=== PATIENT | male | born 1935 | race Caucasian/White ===

== ENCOUNTER 2017-09-13 18:01 | Observation (INO) ==
[2017-09-13] MEDS ORDERED: *HR* FentaNYL (PF) 100 MCG/2 ML VIAL IVP ONE ×2 (18:35→19:02)
[2017-09-13] MEDS ORDERED: *HR* FentaNYL (PF) 100 MCG/2 ML VIAL ONE ×2 (18:35→19:01)
--- NOTE | 2017-09-13 18:35 | Emergency Department Note ---
Disposition Clinical Impression: Hematuria Qualifiers: Hematuria type: unspecified type Qualified Code(s): R31.9 - Hematuria, unspecified Disposition: Still a Patient Condition: Good Forms: ED Satisfaction Letter General Adult HPI - General Chief complaint: ED Urogenital-Male Stated complaint: Bleeding from penis Time Seen by Provider: 09/13/17 18:27 Source: patient Limitations: no limitations Nursing Notes Reviewed: Yes Vital Signs Reviewed: Yes - History of Present Illness HPI Narrative: Patient presents for evaluation of hematuria. Patient has history of prostate problems. Hematuria in the past. Follows with Dr. Echeverria. Had a TURP procedure performed 10 years ago in [place]. Patient has not had any recent issues. Last night had a episode of hematuria where he passed a clot. Patient said continuous bleeding since this time and has had inability to urinate. Lower abdominal pain without guarding or rebound. No fevers or chills. No CVA tenderness. Pain Scale: 10 - Related Data Allergies Allergy/AdvReac Type Severity Reaction Status Date / Time Penicillins Allergy Anaphylaxis Verified 03/21/16 20:11 Review of Systems: CONSTITUTIONAL: No weight loss, fever, chills, weakness or fatigue. HEENT: Eyes: No visual changes. Ears, Nose, Throat: No hearing loss, difficulty talking or unable to swallow. SKIN: No rash or itching. CARDIOVASCULAR: No chest pain, chest pressure or chest discomfort. No palpitations or edema. RESPIRATORY: No shortness of breath, cough or sputum. GASTROINTESTINAL: Abdominal pain; No anorexia, nausea, vomiting or diarrhea. GENITOURINARY: Hematuria. Decreased ability to urinate NEUROLOGICAL: No headache, dizziness, syncope, paralysis, ataxia, numbness or tingling in the extremities. No change in bowel or bladder control. MUSCULOSKELETAL: No muscle pain, back pain, joint pain or stiffness. Past Medical History - Past Medical History Medical history: Reports: diabetes, hypertension, other Psychiatric history: Reports: no psych history - Social History Smoking Status: Never smoker Smokeless Tobacco Status: No Alcohol use: Reports: none Drug use: Reports: none Physical Exam General appearance: NAD, conversant Eyes: anicteric sclerae, moist conjunctivae; no lid-lag; PERRL HENT: Atraumatic; oropharynx clear with moist mucous membranes Neck: Normal appearance; Trachea midline Chest: Symmetrical chest rise; No respiratory distress Abdomen: Soft mild tenderness to suprapubic palpation without rebound or guarding. No CVA tenderness. : Gross hematuria. No tenderness to the testicle or penis. Extremities: No peripheral edema or extremity tenderness Skin: Normal temperature, turgor and texture; no rash, ulcers or subcutaneous nodules Psych: Appropriate mood and affect Neuro: Awake and alert - General Limitations: no limitations General appearance: alert Course - Reevaluation(s) Reevaluation #1: Patient signed out to the night physician. Labs pending. CBI ordered. Vital Signs Temperature 97.6 F 09/13/17 18:16 Pulse Rate 110 09/13/17 18:16 Respiratory Rate 18 09/13/17 18:16 Blood Pressure 222/121 09/13/17 18:16 O2 Sat by Pulse Oximetry 98 09/13/17 18:16 Temperature 97.6 F 09/13/17 18:16 Pulse Rate 91 09/13/17 18:40 Respiratory Rate 16 09/13/17 18:40 Blood Pressure 180/76 09/13/17 18:40 O2 Sat by Pulse Oximetry 96 09/13/17 18:40 Oxygen Delivery Oxygen Delivery Room Air Medical Decision Making - Lab Data Result diagrams: 09/13/17 18:48 Lab Results 09/13/17 Range/Units 18:48 WBC 11.6 H (4.3-11.1) K/mcL RBC 4.79 (4.19-5.50) M/mcL Hgb 14.0 (12.9-16.9) g/dL Hct 42.0 (37.5-50.1) % MCV 87.7 (83.0-100.0) fL MCH 29.2 (28.0-33.3) pg MCHC 33.3 (31.6-35.5) g/dL RDW 13.4 (11.5-14.5) % Plt Count 151 (140-400) K/mcL MPV 11.9 (9.4-12.4) fL Immature Gran % 0.4 (0-4) % Seg Neutrophils % 67.0 % Lymphocytes % 23.5 % Monocytes % 8.1 % Eosinophils % 0.7 % Basophils % 0.3 % Neutrophils # 7.8 (1.6-8.9) K/mcL Lymphocytes # 2.7 (0.6-4.6) K/mcL Monocytes # 0.9 (0.0-1.3) K/mcL Eosinophils # 0.1 (0.0-0.6) K/mcL Basophils # 0.0 (0.0-0.2) K/mcL Attestation Statement - Attestation Attestation: I examined this patient and my medical decision-making was reviewed with the Resident Physician. I agree with the documented findings, disposition and treatment plan as described except to the extent set forth below. Patient to ED with penile bleeding. Started with blood in his urine last night and has progressed. Suprapubic tenderness on exam. Plan. Continuous bladder irrigation. Labs pending. Will be signed out to warehouse supervisor 3rd shift.
[2017-09-13 18:57] LABS: Basophils % 0.3 %; Eosinophils # 0.1 K/mcL (0.0-0.6); Eosinophils % 0.7 %; Immature Granulocytes % 0.4 % (0-4); Lymphocytes # 2.7 K/mcL (0.6-4.6); Lymphocytes % 23.5 %; Mean Corpuscular HGB Conc 33.3 g/dL (31.6-35.5); Mean Corpuscular Hemoglobin 29.2 pg (28.0-33.3); Mean Corpuscular Volume 87.7 fL (83.0-100.0); Mean Platelet Volume 11.9 fL (9.4-12.4); Monocytes # 0.9 K/mcL (0.0-1.3); Monocytes % 8.1 %; Neutrophils # 7.8 K/mcL (1.6-8.9); Platelet Count 151 K/mcL (140-400); Red Blood Count 4.79 M/mcL (4.19-5.50); Red Cell Distribution Width 13.4 % (11.5-14.5)
[2017-09-13 19:05] LABS: INR 1.1; Prothrombin Time 11.8 Seconds (9.4-12.1)
[2017-09-13 19:18] LABS: Calcium 11.8 mg/dL (8.6-10.3); Potassium 4.5 mEq/L (3.5-5.1)
[2017-09-13 19:43] LABS: Bilirubin,Urine Negative (Negative); Blood,Urine Large (Negative); Glucose,Urine (UA) Normal (Normal); Ketones,Urine Negative (Negative); Leukocyte Esterase,Urine Negative (Negative); Nitrite,Urine Negative (Negative); PH,Urine 6.5 pH Units (5.0-8.0); Protein,Urine 100 mg/dL (Neg-Trace); Specific Gravity,Urine 1.014 (1.010-1.025); Urobilinogen,Urine Normal (Normal)
[2017-09-13 19:47] LABS: Clarity,Urine Cloudy (Clear); Color,Urine Red (Yellow)
--- NOTE | 2017-09-13 20:12 | Emergency Department Note ---
Disposition Clinical Impression: Urinary retention Hematuria Qualifiers: Hematuria type: unspecified type Qualified Code(s): R31.9 - Hematuria, unspecified Chronic kidney disease Qualifiers: Chronic kidney disease stage: unspecified stage Qualified Code(s): N18.9 - Chronic kidney disease, unspecified Disposition: Admitted As Inpatient Condition: Fair Time of Disposition: 21:27 General Adult HPI - General Chief complaint: ED Urogenital-Male Stated complaint: Bleeding from penis Time Seen by Provider: 09/13/17 18:27 Source: patient Limitations: no limitations - History of Present Illness HPI Narrative: Patient was signed out by the primary provider. Please see their documentation for complete history and physical. Pain Scale: 1 - Related Data Home Medications Medication Instructions Recorded Confirmed Aspirin Enteric Coated [Aspirin EC] 81 mg PO DAILY 09/13/17 09/13/17 Calcitriol [Rocaltrol] 0.25 mcg PO DAILY 09/13/17 09/13/17 Cholecalciferol (D-3) [Vitamin D] 2,000 unit PO DAILY 09/13/17 09/13/17 Ciprofloxacin HCl [Cipro] 500 mg PO BID 09/13/17 09/13/17 Furosemide [Lasix] 20 mg PO BID 09/13/17 09/13/17 Insulin Glargine [Lantus] 35 unit SQ HS 09/13/17 09/13/17 Insulin LISPRO [HumaLOG] 12 unit SQ TIDAC 09/13/17 09/13/17 Lisinopril [Zestril] 10 mg PO DAILY 09/13/17 09/13/17 Rosuvastatin [Crestor] 20 mg PO HS 09/13/17 09/13/17 SitaGLIPtin [Januvia] 100 mg PO DAILY 09/13/17 09/13/17 Tamsulosin [Flomax] 0.4 mg PO DAILY 09/13/17 09/13/17 Verapamil HCl [Verapamil ER] 180 mg PO DAILY 09/13/17 09/13/17 amLODIPine [Norvasc] 5 mg PO DAILY 09/13/17 09/13/17 Allergies Allergy/AdvReac Type Severity Reaction Status Date / Time Penicillins Allergy Anaphylaxis Verified 03/21/16 20:11 Past Medical History - Past Medical History Medical history: Reports: diabetes, hypertension, other Psychiatric history: Reports: no psych history - Social History Smoking Status: Never smoker Smokeless Tobacco Status: No Alcohol use: Reports: none Drug use: Reports: none Physical Exam - General Limitations: no limitations General appearance: alert Course Course Narrative: 82-year-old male with a history of prostate status post TURP over 10 years ago presents for evaluation of gross hematuria passing clots. Patient was complaining of suprapubic pain and spasm. Urinary catheter placed which revealed gross blood as well as clots. Patient has continues bladder irrigation with clear urine. - Reevaluation(s) Reevaluation #1: Patients resting comfortably. Patient does have continuous bladder irrigation was clear urine at this point. Patient was irrigated initially with 1200 mL with 3 L returned. Patient does have gross hematuria which is clearing with continuous bladder irrigation. We will discuss case with urology. Time: 20:13 - Consultations Consultation #1: Spoke with urology, Dr. Echeverria who will see the patient has an inpatient for morning. Recommends that if the urine is clear they can discontinue the CBI. Time: 20:23 Vital Signs Temperature 97.6 F 09/13/17 18:16 Pulse Rate 110 09/13/17 18:16 Respiratory Rate 18 09/13/17 18:16 Blood Pressure 222/121 09/13/17 18:16 O2 Sat by Pulse Oximetry 98 09/13/17 18:16 Temperature 97.6 F 09/13/17 18:16 Pulse Rate 79 09/13/17 20:30 Respiratory Rate 16 09/13/17 21:49 Blood Pressure 143/75 09/13/17 21:49 O2 Sat by Pulse Oximetry 95 09/13/17 20:30 Oxygen Delivery Oxygen Delivery Room Air Medical Decision Making - [facility] Narrative Medical decision making narrative: Patient presents with gross hematuria passing clots. Patient did have urinary retention with spasming. Patient had a Vizcarra catheter placed with continuous bladder irrigation. Patient is requiring escalating doses of fentanyl prior to arrival with the prior divider. The decision was made to admit at that time. Patient case was discussed with the on-call urologist will see the patient the morning. Patient's hemoglobin did drop from prior lab values. Patient's not any blood thinners besides aspirin. Patient's resting comfortably. Patient will be admitted to hospital service. - Lab Data Lab results reviewed: Yes I reviewed the patient's lab results. Result diagrams: 09/13/17 18:48 09/13/17 18:48 Lab Results 09/13/17 09/13/17 09/13/17 Range/Units 18:48 18:48 18:48 WBC 11.6 H (4.3-11.1) K/mcL RBC 4.79 (4.19-5.50) M/mcL Hgb 14.0 (12.9-16.9) g/dL Hct 42.0 (37.5-50.1) % MCV 87.7 (83.0-100.0) fL MCH 29.2 (28.0-33.3) pg MCHC 33.3 (31.6-35.5) g/dL RDW 13.4 (11.5-14.5) % Plt Count 151 (140-400) K/mcL MPV 11.9 (9.4-12.4) fL Immature Gran % 0.4 (0-4) % Seg Neutrophils % 67.0 % Lymphocytes % 23.5 % Monocytes % 8.1 % Eosinophils % 0.7 % Basophils % 0.3 % Neutrophils # 7.8 (1.6-8.9) K/mcL Lymphocytes # 2.7 (0.6-4.6) K/mcL Monocytes # 0.9 (0.0-1.3) K/mcL Eosinophils # 0.1 (0.0-0.6) K/mcL Basophils # 0.0 (0.0-0.2) K/mcL PT 11.8 (9.4-12.1) Seconds INR 1.1 Sodium 137 (136-145) mEq/L Potassium 4.5 (3.5-5.1) mEq/L Chloride 108 H (98-107) mEq/L Carbon Dioxide 22 L (23-29) mEq/L BUN 42 H (8-23) mg/dL Creatinine 2.04 H (0.70-1.30) mg/dL Est GFR ( Amer) 38 L (> 60) Est GFR (Non-Af Amer) 31 L (> 60) BUN/Creatinine Ratio 21 (6-26) Glucose 128 H (70-105) mg/dL Calculated Osmolality 296 (280-300) Calcium 11.8 H (8.6-10.3) mg/dL Ur Specimen Adequacy Urine Color (Yellow) Urine Clarity (Clear) Urine pH (5.0-8.0) pH Units Ur Specific [place] (1.010-1.025) Urine Protein (Neg-Trace) mg/dL Urine Glucose (UA) (Normal) mg/dL Urine Ketones (Negative) mg/dL Urine Blood (Negative) Urine Nitrite (Negative) Urine Bilirubin (Negative) Urine Urobilinogen (Normal) mg/dL Ur Leukocyte Esterase (Negative) Ur Culture Indicated? (NO) Blood Type Antibody Screen 09/13/17 09/13/17 Range/Units 18:48 19:23 WBC (4.3-11.1) K/mcL RBC (4.19-5.50) M/mcL Hgb (12.9-16.9) g/dL Hct (37.5-50.1) % MCV (83.0-100.0) fL MCH (28.0-33.3) pg MCHC (31.6-35.5) g/dL RDW (11.5-14.5) % Plt Count (140-400) K/mcL MPV (9.4-12.4) fL Immature Gran % (0-4) % Seg Neutrophils % % Lymphocytes % % Monocytes % % Eosinophils % % Basophils % % Neutrophils # (1.6-8.9) K/mcL Lymphocytes # (0.6-4.6) K/mcL Monocytes # (0.0-1.3) K/mcL Eosinophils # (0.0-0.6) K/mcL Basophils # (0.0-0.2) K/mcL PT (9.4-12.1) Seconds INR Sodium (136-145) mEq/L Potassium (3.5-5.1) mEq/L Chloride (98-107) mEq/L Carbon Dioxide (23-29) mEq/L BUN (8-23) mg/dL Creatinine (0.70-1.30) mg/dL Est GFR ( Amer) (> 60) Est GFR (Non-Af Amer) (> 60) BUN/Creatinine Ratio (6-26) Glucose (70-105) mg/dL Calculated Osmolality (280-300) Calcium (8.6-10.3) mg/dL Ur Specimen Adequacy See below A Urine Color Red A (Yellow) Urine Clarity Cloudy A (Clear) Urine pH 6.5 (5.0-8.0) pH Units Ur Specific [place] 1.014 (1.010-1.025) Urine Protein 100 H (Neg-Trace) mg/dL Urine Glucose (UA) Normal (Normal) mg/dL Urine Ketones Negative (Negative) mg/dL Urine Blood Large H (Negative) Urine Nitrite Negative (Negative) Urine Bilirubin Negative (Negative) Urine Urobilinogen Normal (Normal) mg/dL Ur Leukocyte Esterase Negative (Negative) Ur Culture Indicated? NO (NO) Blood Type O POSITIVE Antibody Screen NEGATIVE S.B.A.R. - S.B.AMalu Situation: Demographics Background: Presenting Complaint Assessment: Vital Signs, Course and respsone to treatment, Patient/Family Expectation Recommendation: Barrier(s) to disposition, Recommendation based on pending studies, treatments, or consults S.B.A.RCristal Report Given to: Dr. Hu Barbosa Repor Time: 21:26 Attestation Statement - Attestation Attestation: I, Ross Arcos DO, examined this patient [id number] and my medical decision-making was reviewed with Dr. Tulio Aly, Resident Physician. I agree with the documented findings, disposition and treatment plan as described except to the extent set forth below. Please see my progress notes for details. 82-year-old male presents to the emergency room for evaluation of gross hematuria and urinary retention. 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 Vital signs remained stable. Patient has lower abdominal discomfort and pain. Large gauge irrigating Vizcarra catheter was placed. Large costovertebral 200 mL of gross blood and clots. Patient's vital signs were stable. Significant amount of pain medication secondary to bladder spasm and discomfort. Patient also has some secondary renal insufficiency that appears to be new. Hemoglobin is otherwise stable. Pain control is the main issue.. Because of these symptoms and issues patient will be admitted for symptomatic control and observation. Urology was consulted but no intervention required at this time. Patient is otherwise stable hemodynamically and for catheter is functioning appropriately. Disposition will be admission of this time. See detailed of physical exam, medical intervention, medical decision-making and the resident physician' s note. No critical care is required this patient's treatment course. Admission process was determined that the daytime physician prior to arrival following through with the recommended treatment course of this time. 1999 Patient was contacted urology. No other recommendations at this time. Admission process completed for monitoring of the Vizcarra catheter and symptom control. Patient is otherwise stable. Conversation was had with the patient and family. No other concerns or issues noted this time. Patient stable to time of admission to the floor.
--- NOTE | 2017-09-13 22:11 | Internal Med History&Physical ---
<Matthieu Oneil - Last Filed: 09/13/17 23:00> Date of Encounter: 09/13/17 Time of Encounter: 22:10 Assessment and Plan (1) Hematuria Current visit: Yes Status: Acute Patient passed BRB and clots. Hgb 14. Hx of similar presentation in 2013 at outside facility requiring repeat TURP. Likely secondary to Prostate issues, passing of clot. patient now with catheter in and receiving CBI continue CBI and amaya until urine clears continue to monitor Urology on board. Appreciate any recommendations. patient no imaging in our records. while hematuria likely from prior prostate issues. will get CT non contrast abd pelvis to rule out other causes. Qualifiers: Hematuria type: gross Qualified Code(s): R31.0 - Gross hematuria (2) Urinary retention Current visit: Yes Status: Acute Patient with urinary retention prior to passing clot. patient now with catheter in and receiving CBI continue CBI and amaya continue to monitor Urology on board. Appreciate any recommendations. continue IV fluid hydration to avoid excessive post obstruction diuresis. (3) Chronic kidney disease Current visit: Yes Status: Acute Pt with Stage 3 CKD 2/2 to DM Baseline Cr.1.8 Current Cr. 2.04 does not meet criteria for DANISH continue to monitor Qualifiers: Chronic kidney disease stage: stage 3 (moderate) Qualified Code(s): N18.3 - Chronic kidney disease, stage 3 (moderate) (4) Diabetes mellitus Current visit: Yes Status: Acute Pt with Hx of DM on insulin and oral agents. 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 Qualifiers: Hypertension type: essential hypertension Qualified Code(s): I10 - Essential (primary) hypertension Internal Medicine - H&P: HPI Chief complaint: Peeing blood Admitted From: Emergency Dept Plans for Post Hospital Care: Home History of present illness: Mr. Dia is a 82 year old male c PMHx BPH s/p TURP 1999 and repeat ~2012, DM, HTN, CKD reports to ED c/o Hematuria x 1 day. Patient reports having difficulty voiding all day yesterday, then that evening passed a clot and voided "pure blood". Patient has had hx of similar occurance in 2012 requiring clot evacuation and repeat TURP. Patient reports some suprapubic pain earleir but none now. Patient reports it does burn while he's peeing. Patient denies trauma , other complaints. Patient follow with [facility] Dr. Echeverria. Urology consulted and will see patient in the morning. Patient received Complete Bowel Irrigation in the ED. Patient is on his 4th bag now. Hgb is stable. Patient also found to have a bump in Cr. Baseline 1.8 currently 2.04. Pt is on aspirin but no blood thinners. Past Med Surg Social Fam HX - Past Medical History Medical history: diabetes, hypertension, other Psychiatric history: no psych history - Social History Smoking Status: Never smoker Smokeless Tobacco Status: No Alcohol use: none Drug use: none Internal Medicine - H&P: Meds Aspirin Enteric Coated [Aspirin EC] 81 mg PO DAILY 09/13/17 [History] Calcitriol [Rocaltrol] 0.25 mcg PO DAILY 09/13/17 [History] Cholecalciferol (D-3) [Vitamin D] 2,000 unit PO DAILY 09/13/17 [History] Ciprofloxacin HCl [Cipro] 500 mg PO BID 09/13/17 [History] Furosemide [Lasix] 20 mg PO BID 09/13/17 [History] Insulin Glargine [Lantus] 35 unit SQ HS 09/13/17 [History] Insulin LISPRO [HumaLOG] 12 unit SQ TIDAC 09/13/17 [History] Lisinopril [Zestril] 10 mg PO DAILY 09/13/17 [History] Rosuvastatin [Crestor] 20 mg PO HS 09/13/17 [History] SitaGLIPtin [Januvia] 100 mg PO DAILY 09/13/17 [History] Tamsulosin [Flomax] 0.4 mg PO DAILY 09/13/17 [History] Verapamil HCl [Verapamil ER] 180 mg PO DAILY 09/13/17 [History] amLODIPine [Norvasc] 5 mg PO DAILY 09/13/17 [History] 3 Allergy/AdvReac Type Severity Reaction Status Date / Time Penicillins Allergy Anaphylaxis Verified 03/21/16 20:11 All Systems PM: A 10-system review of systems was performed and is negative for pertinent findings except as documented above in the HPI. - Constitutional Constitutional: no chills, no fever(s), no weakness - EENT Eyes: no change in vision Ears: no ear pain Nose, mouth and throat: no hoarseness, no nasal discharge - Cardiovascular Cardiovascular ROS IM: no chest pain, no lightheadedness, no palpitations - Respiratory Respiratory: no cough, no dyspnea - Gastrointestinal Gastrointestinal: no abdominal pain, no diarrhea, no nausea, no vomiting - Genitourinary Genitourinary ROS male: difficulty urinating, dysuria, hematuria - Musculoskeletal Musculoskeletal ROS IM: no muscle weakness, no numbness - Integumentary Integumentary IM: no rash, no jaundice - Neurological Neurological ROS: no abnormal speech, no confusion - Psychiatric Psychiatric: no anxiety, no depression - Constitutional Vitals: Temp Pulse Resp BP Pulse Ox 97.6 F 79 16 143/75 95 09/13/17 18:16 09/13/17 20:30 09/13/17 21:49 09/13/17 21:49 09/13/17 20:30 General appearance: Present: A&O X 3, pleasant, no acute distress, obese, answers questions appropriately - Head Head exam: Present: atraumatic, normocephalic - Eye Eye exam: Present: PERRL, conjuntiva pink, sclera anicteric Pupils: Present: PERRL - Neck Neck exam general surgery: Present: supple, trachea midline. Absent: lymphadenopathy - Respiratory Respiratory exam: Present: CTAB. Absent: accessory muscle use, rales, rhonchi, wheezes - Cardiovascular Cardiovascular exam: Present: RRR, +S1, +S2. Absent: diastolic murmur, gallop, rubs, systolic murmur - GI/Abdominal GI/Abdominal exam: Present: normal bowel sounds, soft, no peritoneal signs. Absent: distended, tenderness - Extremities Exam Extremities exam: Present: warm, radial pulses palpable and symmetrical. Absent : calf tenderness, cyanotic, pedal edema - Neurological Exam Neurological exam: Present: alert, CN II-XII intact, oriented X3, no focal deficits. Absent: facial droop, speech deficit - Skin Skin exam: Present: dry, intact Internal Med - H&P Results - Labs CBC & Chem 7: 09/13/17 18:48 09/13/17 18:48 <Link Lui - Last Filed: 09/14/17 01:18> Date of Encounter: 09/14/17 Time of Encounter: 00:25 Past Med Surg Social Fam HX - Past Medical History Attestation: Yes The following information was validated with the patient. Source: patient, old records reviewed - Past Surgical History Surgical History: prostatectomy - Social History Current living situation: Home, With Family Activity Level: Independent ambulation Recent Out of Country Travel Within the Last 8 Weeks: No - Family History Mother Living Status: Hx Family Genitourinary Disorders: No Father Living Status: Hx Family Genitourinary Disorders: No - Constitutional Constitutional: no chills, no fever(s), no night sweats - Gastrointestinal Gastrointestinal: no nausea, no vomiting - Genitourinary Genitourinary ROS male: difficulty urinating, dysuria, hematuria, no flank pain - Constitutional Vitals: Temp Pulse Resp BP Pulse Ox 97.5 F L 81 16 158/76 97 09/13/17 22:16 09/13/17 22:16 09/13/17 22:16 09/13/17 22:16 09/13/17 22:16 General appearance: Present: A&O X 3, no acute distress - Eye Eye exam: Present: PERRL. Absent: scleral icterus - Neck Neck exam general surgery: Present: supple - Respiratory Respiratory exam: Present: CTAB. Absent: rales, rhonchi, wheezes - Cardiovascular Cardiovascular exam: Present: RRR, +S1, +S2. Absent: diastolic murmur, systolic murmur - GI/Abdominal GI/Abdominal exam: Present: normal bowel sounds, soft. Absent: hepatomegaly, splenomegaly, tenderness - Extremities Exam Extremities exam: Present: warm, radial pulses palpable and symmetrical. Absent : pedal edema, tenderness - Back Exam Back exam: Absent: CVA tenderness (L), CVA tenderness (R) - Skin Skin exam: Present: dry, warm. Absent: rash Internal Med - H&P Results - Labs CBC & Chem 7: 09/13/17 18:48 09/13/17 18:48 - Impressions ITS Impressions Abdomen/Pelvis CT 09/14/17 00:20 IMPRESSION: 1. There is right-sided hydronephrosis and bilateral hydroureter with no ureteral or bladder calculi. There is a tiny calculus within the left kidney. 2. High attenuation in the urinary bladder likely represents hemorrhage. 3. Diverticulosis without scan evidence for diverticulitis. 4. Cholelithiasis without scan evidence for acute cholecystitis. D/ / Shen Andrew MD / Shen Andrew MD Interpreting Provider: Shen Andrew MD - Attending Attestation I discussed the patient QUILEUTE, PMH, ROS, lab data, and exam findings with Dr. Oneil. I then saw and examined patient independently as well. Patient has continuous bladder irrigation infusing currently, and he has blood tinged urine in his Amaya presently. He feels much better now and after he passed a clot in his urine. He denies fevers, chills, flank pain, or history of kidney stones. He has history of prostate problems. He has not had any recent GI/ imaging. As such, I requested from Dr. Oneil to order a non-contrast CT to image his GI and tract. Further urologic intervention per urology. We will continue IVF and monitor his renal function. He sees a white shoe examiner at [facility] in [place], [place]. If necessary, we will consult our nephrologists. However, if renal function remains stable, outpatient follow up is appropriate. Other than my above comments and noted exam findings, I agree with Dr. Oneil 's assessment and plan.
[2017-09-13] MEDS ORDERED: Dextrose Gel 15 GM/37.5 ML TUBE PO PRN ×2 (23:04)
[2017-09-13] MEDS ORDERED: *HR* Dextrose 50 % in Water (Syg) 50 ML SYRINGE IVP PRN (23:04)
[2017-09-13] MEDS ORDERED: D5% in Water 1,000 ML IVC PRN (23:04)
[2017-09-14] MEDS: Insulin LISPRO 300 UNITS/3 ML VIAL SQ SCH ×5 (00:55→20:53)
--- NOTE | 2017-09-14 07:01 | Urology - Consult Note ---
Date of Encounter: 09/14/17 Time of Encounter: 06:59 - Assessment and Plan (1) Gross hematuria Current Visit: Yes Status: Acute Assessment and plan: Continue CBI (2) Clot retention of urine Current Visit: Yes Status: Acute Assessment and plan: I reviewed the CT scan. I suspect that the gross hematuria secondary to BPH. Will start finasteride. Continue CBI. Hopefully hematuria will begin to decrease as I was able to irrigate some clot out this morning. I reviewed the CT scan and there does not appear to be a significant volume of clot in his bladder. Hopefully he will not require surgical intervention. Hold all anticoagulation. Urology CN:HPI Consult date: 09/14/17 Reason for consult Urology: Gross Hematuria History of present illness: Patient with a 1-2 day history of gross hematuria. Last seen by urology in 2013. Distant history of a TURP for BPH. Patient developed clot retention and Vizcarra catheter was placed in the emergency room. CT scan demonstrates significant BPH with some clots in the bladder. Past Med Surg Social Fam HX - Past Medical History Medical history: diabetes, hypertension, other Psychiatric history: no psych history - Past Surgical History Surgical History: prostatectomy - Social History Smoking Status: Never smoker Smokeless Tobacco Status: No Alcohol use: none Drug use: none - Family History Mother Living Status: Hx Family Genitourinary Disorders: No Father Living Status: Hx Family Genitourinary Disorders: No Medications and Allergies Aspirin Enteric Coated [Aspirin EC] 81 mg PO DAILY 09/13/17 [History] Calcitriol [Rocaltrol] 0.25 mcg PO DAILY 09/13/17 [History] Cholecalciferol (D-3) [Vitamin D] 2,000 unit PO DAILY 09/13/17 [History] Ciprofloxacin HCl [Cipro] 500 mg PO BID 09/13/17 [History] Furosemide [Lasix] 20 mg PO BID 09/13/17 [History] Insulin Glargine [Lantus] 35 unit SQ HS 09/13/17 [History] Insulin LISPRO [HumaLOG] 12 unit SQ TIDAC 09/13/17 [History] Lisinopril [Zestril] 10 mg PO DAILY 09/13/17 [History] Rosuvastatin [Crestor] 20 mg PO HS 09/13/17 [History] SitaGLIPtin [Januvia] 100 mg PO DAILY 09/13/17 [History] Tamsulosin [Flomax] 0.4 mg PO DAILY 09/13/17 [History] Verapamil HCl [Verapamil ER] 180 mg PO DAILY 09/13/17 [History] amLODIPine [Norvasc] 5 mg PO DAILY 09/13/17 [History] 3 Allergy/AdvReac Type Severity Reaction Status Date / Time Penicillins Allergy Anaphylaxis Verified 03/21/16 20:11 Review of Systems - Constitutional no chills, no fatigue, no fever(s) - EENT Nose, mouth and throat: no dizziness - Cardiovascular no chest pain - Respiratory no cough - Gastrointestinal abdominal pain, no nausea - Genitourinary hematuria - Musculoskeletal back pain - Integumentary no erythema - Neurological no confusion - Psychiatric no anxiety - Hematologic/Lymphatic easy bleeding - Allergic/Immunologic no throat swelling Exam Initial Vital Signs Temp Pulse Resp BP Pulse Ox 97.6 F 110 18 222/121 98 09/13/17 18:16 09/13/17 18:16 09/13/17 18:16 09/13/17 18:16 09/13/17 18:16 - General physical appearance Present: well developed, no distress - Eyes Present: PERRL - ENT Present: normal nares - Neck Present: no masses - Respiratory Present: normal respiratory effort - Cardiovascular Cardiovascular exam IM: RRR - Abdomen Abdomen: Present: soft, suprapubic tenderness. Absent: masses - Integumentary Present: no rash, no abnormal pigmentation - Neurologic Present: normal coordination. Absent: disoriented, confused - Additional Findings Three-way Vizcarra catheter in place. Draining [id number] transparent hematuria on a medium CBI drip. 60 mL catheter tip syringe used to irrigate the catheter. Returned approximately 20-30 mL of black clot. Unable to irrigate further clot at this time. Was irrigating easily Urology Results - Labs 09/13/17 18:48 09/13/17 18:48 Abnormal lab results WBC 11.6 K/mcL (4.3-11.1) H 09/13/17 18:48 Chloride 108 mEq/L (98-107) H 09/13/17 18:48 Carbon Dioxide 22 mEq/L (23-29) L 09/13/17 18:48 BUN 42 mg/dL (8-23) H 09/13/17 18:48 Creatinine 2.04 mg/dL (0.70-1.30) H 09/13/17 18:48 Est GFR ( Amer) 38 (> 60) L 09/13/17 18:48 Est GFR (Non-Af Amer) 31 (> 60) L 09/13/17 18:48 Glucose 128 mg/dL (70-105) H 09/13/17 18:48 POC Glucose 131 (58-89) H 09/14/17 00:53 Calcium 11.8 mg/dL (8.6-10.3) H 09/13/17 18:48 Ur Specimen Adequacy See below A 09/13/17 19:23 Urine Color Red (Yellow) A 09/13/17 19:23 Urine Clarity Cloudy (Clear) A 09/13/17 19:23 Urine Protein 100 mg/dL (Neg-Trace) H 09/13/17 19:23 Urine Blood Large (Negative) H 09/13/17 19:23 All other labs normal. Consult Discharge Plan - Plan Referrals: Arnoldo Schaefer DO [Primary Care Provider] -
[2017-09-14] MEDS: amLODIPine 5 MG TABLET PO SCH (08:36)
[2017-09-14] MEDS: Verapamil ER (24 HR) 180 MG TABLET.ER PO SCH (08:36)
[2017-09-14] MEDS: Finasteride 5 MG TABLET PO SCH (08:36)
[2017-09-14 09:44] LABS: Basophils % 0.3 %; Eosinophils # 0.2 K/mcL (0.0-0.6); Eosinophils % 1.4 %; Hematocrit 39.8 % (37.5-50.1); Immature Granulocytes % 0.6 % (0-4); Lymphocytes # 1.9 K/mcL (0.6-4.6); Lymphocytes % 15.1 %; Mean Corpuscular HGB Conc 32.7 g/dL (31.6-35.5); Mean Corpuscular Volume 88.6 fL (83.0-100.0); Mean Platelet Volume 12.6 fL (9.4-12.4); Neutrophils # 9.2 K/mcL (1.6-8.9); Platelet Count 152 K/mcL (140-400); Red Blood Count 4.49 M/mcL (4.19-5.50); Red Cell Distribution Width 13.6 % (11.5-14.5); Segmented Neutrophils % 74.6 %
[2017-09-14 09:58] LABS: Calcium 10.9 mg/dL (8.6-10.3); Potassium 4.4 mEq/L (3.5-5.1)
[2017-09-14] MEDS: Furosemide 20 MG TABLET PO SCH (16:50)
--- NOTE | 2017-09-14 17:51 | Internal Med Progress Note ---
Date of Encounter: 09/14/17 Time of Encounter: 09:45 - Assessment and plan (1) Gross hematuria Current Visit: Yes Status: Acute Assessment and plan: Improving. Urology consult appreciated, continue continuous bladder irrigation. Hematuria likely related to BPH, started on finasteride. CT abdomen shows mild bilateral hydronephrosis and hydroureter, likely due to recent urinary retention. Monitor hemoglobin closely. Hold aspirin for now. (2) Chronic kidney disease Current Visit: Yes Status: Chronic Assessment and plan: Serum creatinine noted to be around baseline. Avoid nephrotoxic agents. Monitor urine output. Qualifiers: Chronic kidney disease stage: stage 3 (moderate) Qualified Code(s): N18.3 - Chronic kidney disease, stage 3 (moderate) (3) Diabetes mellitus Current Visit: Yes Status: Chronic Assessment and plan: Blood sugars noted to be well controlled. Continue Accu-Chek blood glucose monitoring with basal bolus insulin regimen. Diabetic diet. 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; Z79.4 - call center support representative (current) use of insulin (4) HTN (hypertension) Current Visit: Yes Status: Chronic Qualifiers: Hypertension type: essential hypertension Qualified Code(s): I10 - Essential (primary) hypertension - Subjective Interval history: Feels better; on CBI, hematuria clearing up; no abdominal pain, nausea, vomiting ; - Constitutional Vitals: Temp Pulse Resp BP Pulse Ox 97.6 F 68 15 157/64 96 09/14/17 16:41 09/14/17 16:41 09/14/17 16:41 09/14/17 16:41 09/14/17 16:41 General appearance: Present: A&O X 3, answers questions appropriately - Respiratory Respiratory exam: Present: CTAB. Absent: accessory muscle use, rales, rhonchi, wheezes - Cardiovascular Cardiovascular exam: Present: RRR, +S1, +S2. Absent: diastolic murmur, gallop, rubs, systolic murmur - GI/Abdominal GI/Abdominal exam: Present: normal bowel sounds, soft (obese), no peritoneal signs. Absent: distended, tenderness - Extremities Exam Extremities exam: Present: full ROM, warm, radial pulses palpable and symmetrical. Absent: calf tenderness, cyanotic, pedal edema Internal Medicine: Result - Labs CBC & Chem 7: 09/14/17 08:35 09/14/17 08:35 Labs: Short CBC 09/14/17 Range/Units 08:35 WBC 12.3 H (4.3-11.1) K/mcL Hgb 13.0 (12.9-16.9) g/dL Hct 39.8 (37.5-50.1) % Plt Count 152 (140-400) K/mcL Neutrophils # 9.2 H (1.6-8.9) K/mcL BMP 09/14/17 08:35 Sodium 137 Potassium 4.4 Chloride 109 H Carbon Dioxide 22 L BUN 34 H Creatinine 1.58 H Glucose 126 H Calcium 10.9 H - ABG Interpretation ABG results: PT/INR, D-dimer PT 11.8 Seconds (9.4-12.1) 09/13/17 18:48 - Impressions Impressions Abdomen/Pelvis CT 09/14/17 00:20 IMPRESSION: 1. There is right-sided hydronephrosis and bilateral hydroureter with no ureteral or bladder calculi. There is a tiny calculus within the left kidney. 2. High attenuation in the urinary bladder likely represents hemorrhage. 3. Diverticulosis without scan evidence for diverticulitis. 4. Cholelithiasis without scan evidence for acute cholecystitis. D/ / Shen Andrew MD / Shen Andrew MD Interpreting Provider: Shen Andrew MD - VTE Documentation of Mechanical Device: Intermittent pneumatic compression device Consult Discharge Plan - Plan Referrals: Arnoldo Schaefer DO [Primary Care Provider] -
[2017-09-14] MEDS: Insulin DETEMIR 100 UNIT/ML X5UNITS SQ SCH (22:18)
[2017-09-15 05:28] LABS: Basophils % 0.2 %; Eosinophils # 0.1 K/mcL (0.0-0.6); Eosinophils % 1.1 %; Hemoglobin 12.2 g/dL (12.9-16.9); Immature Granulocytes % 0.6 % (0-4); Lymphocytes # 1.6 K/mcL (0.6-4.6); Mean Corpuscular HGB Conc 33.9 g/dL (31.6-35.5); Mean Corpuscular Hemoglobin 29.7 pg (28.0-33.3); Mean Corpuscular Volume 87.6 fL (83.0-100.0); Mean Platelet Volume 12.2 fL (9.4-12.4); Monocytes % 7.9 %; Neutrophils # 9.7 K/mcL (1.6-8.9); Platelet Count 136 K/mcL (140-400); Red Blood Count 4.11 M/mcL (4.19-5.50); Red Cell Distribution Width 13.7 % (11.5-14.5); Segmented Neutrophils % 77.2 %
--- NOTE | 2017-09-15 06:47 | Urology Progress Note ---
Date of Encounter: 09/15/17 Time of Encounter: 06:44 - Assessment and Plan (1) Gross hematuria Current Visit: Yes Status: Resolved Assessment and plan: hematuria has resolved. stop CBI. ok to discharge from urology standpoint. WBC 12 noted and still feel ok to discharge. recommend continuing finasteride. discharge with amaya cath in place. followup next week for voiding trial with urology. (2) Clot retention of urine Current Visit: Yes Status: Resolved Progress Note Narrative: pt still with some bladder spasms but doing better. hematuria is clearing. Objective Initial Vital Signs Temp Pulse Resp BP Pulse Ox 97.6 F 110 18 222/121 98 09/13/17 18:16 09/13/17 18:16 09/13/17 18:16 09/13/17 18:16 09/13/17 18:16 - General physical appearance Present: no distress - Additional Exam irrigated cath. one small old clot then irrigated freely and clear. urine clear on slow drip - Labs 09/15/17 05:14 09/14/17 08:35 Diabetes panel 09/14/17 Range/Units 08:35 Sodium 137 (136-145) mEq/L Potassium 4.4 (3.5-5.1) mEq/L Chloride 109 H (98-107) mEq/L Carbon Dioxide 22 L (23-29) mEq/L BUN 34 H (8-23) mg/dL Creatinine 1.58 H (0.70-1.30) mg/dL Glucose 126 H (70-105) mg/dL Calcium 10.9 H (8.6-10.3) mg/dL Calcium panel 09/14/17 Range/Units 08:35 Calcium 10.9 H (8.6-10.3) mg/dL Pituitary panel 09/14/17 Range/Units 08:35 Sodium 137 (136-145) mEq/L Potassium 4.4 (3.5-5.1) mEq/L Chloride 109 H (98-107) mEq/L Carbon Dioxide 22 L (23-29) mEq/L BUN 34 H (8-23) mg/dL Creatinine 1.58 H (0.70-1.30) mg/dL Glucose 126 H (70-105) mg/dL Calcium 10.9 H (8.6-10.3) mg/dL Adrenal panel 02/22/18 Range/Units 08:35 Sodium 137 (136-145) mEq/L Potassium 4.4 (3.5-5.1) mEq/L Chloride 109 H (98-107) mEq/L Carbon Dioxide 22 L (23-29) mEq/L BUN 34 H (8-23) mg/dL Creatinine 1.58 H (0.70-1.30) mg/dL Glucose 126 H (70-105) mg/dL Calcium 10.9 H (8.6-10.3) mg/dL - VTE Documentation of Mechanical Device: Intermittent pneumatic compression device Consult Discharge Plan - Plan Referrals: Arnoldo Schaefer DO [Primary Care Provider] -
[2017-09-15] MEDS: Insulin LISPRO 300 UNITS/3 ML VIAL SQ SCH ×2 (08:46→13:34)
[2017-09-15] MEDS: Insulin DETEMIR 100 UNIT/ML X5UNITS SQ SCH (08:47)
[2017-09-15] MEDS: Furosemide 20 MG TABLET PO SCH (08:47)
[2017-09-15] MEDS: Finasteride 5 MG TABLET PO SCH (08:47)
[2017-09-15] MEDS: Verapamil ER (24 HR) 180 MG TABLET.ER PO SCH (08:47)
[2017-09-15] MEDS: amLODIPine 5 MG TABLET PO SCH (08:48)
[2017-09-15] MEDS ORDERED: Cholecalciferol (D-3) 1,000 UNIT TABLET PO SCH (09:00)
[2017-09-15 11:38] VITALS: BP 141/68
--- NOTE | 2017-09-15 12:35 | Discharge Summary ---
- NOTES TO OUTPATIENT PROVIDER Notes to Outpatient Provider: F/up Hb, monitor hematuria; ASA has been held for now; Date of Encounter: 09/15/17 Time of Encounter: 12:33 - Discharge Diagnosis (1) Gross hematuria Priority: Primary Status: Acute (2) Chronic kidney disease Priority: Secondary Status: Chronic Qualifiers: Chronic kidney disease stage: stage 3 (moderate) Qualified Code(s): N18.3 - Chronic kidney disease, stage 3 (moderate) (3) Diabetes mellitus Priority: Secondary Status: Chronic Qualifiers: Diabetes mellitus type: type 2 Diabetes mellitus complication status: with kidney complications Diabetes mellitus complication detail: with chronic kidney disease 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 Chronic kidney disease stage: stage 3 (moderate) Qualified Code(s): E11.22 - Type 2 diabetes mellitus with diabetic chronic kidney disease; N18.3 - Chronic kidney disease, stage 3 (moderate); N18.3 - Chronic kidney disease, stage 3 ( moderate); Z79.4 - terminal press operator (current) use of insulin; Z79.4 - jail ( current) use of insulin; Z79.4 - jail (current) use of insulin; Z79.4 - terminal press operator (current) use of insulin (4) HTN (hypertension) Priority: Secondary Status: Chronic Qualifiers: Hypertension type: essential hypertension Qualified Code(s): I10 - Essential (primary) hypertension Hospital course: Mr. Dia is a 82 year old male with the above medical problems, who was admitted with gross hematuria. CT abdomen/pelvis showed right-sided hydronephrosis and bilateral hydroureter with no stones. Patient was seen by urology, started on continuous bladder irrigation with subsequent resolution of hematuria. Urinalysis was not suggestive of UTI. His hemoglobin remained fairly stable although there is a 1.5 g drop, remains at 12.2 and does not need PRBC transfusion. Patient has been started on finasteride for urology, being discharged on this. He is also recommended to be discharged on indwelling Vizcarra catheter with outpatient urology follow-up for a voiding trial. Plan of care has been explained to patient;s family at bedside, who are in agreement. Discharge discussed with: patient, family - Time Spent with Patient Total time spent providing and/or coordinating discharge services: Greater than 30 minutes (45 min) - Discharge Medications Prescriptions: Acetaminophen [Tylenol] 650 mg PO Q6HR PRN #30 tablet PRN Reason: Pain Finasteride [Proscar] 5 mg PO DAILY #30 tablet Home Medications: Calcitriol [Rocaltrol] 0.25 mcg PO DAILY 09/13/17 [History] Cholecalciferol (D-3) [Vitamin D] 2,000 unit PO DAILY 09/13/17 [History] Furosemide [Lasix] 20 mg PO BID 09/13/17 [History] Insulin Glargine [Lantus] 35 unit SQ HS 09/13/17 [History] Insulin LISPRO [HumaLOG] 12 unit SQ TIDAC 09/13/17 [History] Lisinopril [Zestril] 10 mg PO DAILY 09/13/17 [History] Rosuvastatin [Crestor] 20 mg PO HS 09/13/17 [History] SitaGLIPtin [Januvia] 100 mg PO DAILY 09/13/17 [History] Tamsulosin [Flomax] 0.4 mg PO DAILY 09/13/17 [History] Verapamil HCl [Verapamil ER] 180 mg PO DAILY 09/13/17 [History] amLODIPine [Norvasc] 5 mg PO DAILY 09/13/17 [History] Acetaminophen [Tylenol] 650 mg PO Q6HR PRN #30 tablet 09/15/17 [Rx] Finasteride [Proscar] 5 mg PO DAILY #30 tablet 09/15/17 [Rx] Allergies/Adverse Reactions: 3 Allergy/AdvReac Type Severity Reaction Status Date / Time Penicillins Allergy Anaphylaxis Verified 03/21/16 20:11 Date of admission: 09/13/17 21:33 Primary care physician: Arnoldo Schaefer Discharging clinician: Che Albert Anticipated date of discharge: 09/15/17 - Constitutional Vitals: Temp Pulse Resp BP Pulse Ox 97.6 F 100 15 141/68 95 09/15/17 11:35 09/15/17 11:35 09/15/17 11:35 09/15/17 11:35 09/15/17 11:35 General appearance: Present: A&O X 3, answers questions appropriately - Cardiovascular Cardiovascular exam: Present: RRR, +S1, +S2. Absent: diastolic murmur, gallop, rubs, systolic murmur - Patient Status Disposition: Home, Self-Care Condition: Fair Functional capacity at discharge: independent ambulation Overall status at discharge: patient is progressing back to baseline - Discharge Instructions Instructions: Acetaminophen (By mouth), Finasteride (By mouth) Follow Up With: Arnoldo Schaefer DO [Primary Care Provider] - (Call office for appointment) King Echeverria MD [Partnered Physician] - 09/27/17 9:30 am Additional Instructions: F/up with Urology in 2 weeks F/up with PCP in 1-2 weeks - Diet and Activity Activity: resume usual activities as tolerated Diet: diabetic diet, low fat, low cholesterol, low salt diet, other (renal diet) - VTE Documentation of Mechanical Device: Intermittent pneumatic compression device
== END 2017-09-15 15:35 | disposition home or self-care (01) ==
LOC: 3ANU 18:01 → EMEROO 18:01 → 3ANU 21:51
PROVIDERS: ADMIT Pediatrics; ATTEND Internal Medicine

== ENCOUNTER 2020-11-26 14:22 | Observation (INO) ==
[2020-11-26] MEDS ORDERED: Nitroglycerin 0.4 MG TAB.SUBL SL PRN (16:50)
[2020-11-26] MEDS ORDERED: Ondansetron 4 MG/2 ML VIAL IVP PRN (16:50)
[2020-11-26] MEDS ORDERED: Morphine Sulfate 2 MG/ML SYRINGE IVP PRN (16:50)
[2020-11-26] MEDS ORDERED: D5% in Water 1,000 ML IVC PRN (16:52)
[2020-11-26] MEDS ORDERED: *HR* Dextrose 50 % in Water (Vial) 50 ML VIAL IVP PRN (16:52)
[2020-11-26] MEDS ORDERED: Dextrose Gel 15 GM/37.5 ML TUBE PO PRN ×2 (16:52)
[2020-11-26] MEDS ORDERED: Aspirin 81 MG TAB.CHEW PO ONE (17:54)
[2020-11-26] MEDS: Furosemide 20 MG TABLET PO SCH (19:22)
[2020-11-26] MEDS ORDERED: Insulin LISPRO 300 UNITS/3 ML VIAL SUBQ SCH (21:00)
[2020-11-27 03:32] VITALS: BP 138/67
[2020-11-27 05:28] LABS: Basophils # 0.1 K/mcL (0.0-0.2); Basophils % 0.7 %; Eosinophils # 0.3 K/mcL (0.0-0.6); Eosinophils % 3.1 %; Hematocrit 35.5 % (37.5-50.1); Hemoglobin 11.6 g/dL (12.9-16.9); Immature Granulocytes % 0.7 % (0-4); Lymphocytes # 2.9 K/mcL (0.6-4.6); Lymphocytes % 32.8 %; Mean Corpuscular HGB Conc 32.7 g/dL (31.6-35.5); Mean Corpuscular Hemoglobin 30.2 pg (28.0-33.3); Mean Corpuscular Volume 92.4 fL (83.0-100.0); Mean Platelet Volume 11.9 fL (9.4-12.4); Monocytes # 0.8 K/mcL (0.0-1.3); Monocytes % 8.9 %; Neutrophils # 4.7 K/mcL (1.6-8.9); Platelet Count 182 K/mcL (140-400); Red Blood Count 3.84 M/mcL (4.19-5.50); Red Cell Distribution Width 13.2 % (11.5-14.5); Segmented Neutrophils % 53.8 %; White Blood Count 8.8 K/mcL (4.3-11.1)
[2020-11-27 05:35] LABS: INR 1.1; Prothrombin Time 12.9 Seconds (9.4-12.1)
[2020-11-27 05:46] LABS: Albumin 3.6 g/dL (3.5-5.7); Albumin/Globulin Ratio 1.9 (1.1-2.2); Bilirubin,Total 0.4 mg/dL (0.3-1.0); Globulin 1.9 g/dL (2.4-3.5); Magnesium 1.7 mg/dL (1.6-2.6); Total Protein 5.5 g/dL (6.4-8.9)
[2020-11-27] MEDS ORDERED: Regadenoson 0.4 MG/5 ML SYRINGE IVP ONE (06:16)
[2020-11-27] MEDS ORDERED: Insulin LISPRO 300 UNITS/3 ML VIAL SUBQ SCH (07:30)
[2020-11-27] MEDS ORDERED: Aspirin 81 MG TAB.CHEW PO SCH (09:00)
[2020-11-27] MEDS ORDERED: lisinopriL 10 MG TABLET PO SCH (09:00)
[2020-11-27] MEDS ORDERED: allopurinoL 100 MG TABLET PO SCH (09:00)
[2020-11-27] MEDS ORDERED: Verapamil ER (24 HR) 180 MG TABLET.ER PO SCH (09:00)
[2020-11-27] MEDS: Furosemide 20 MG TABLET PO SCH (09:49)
== END 2020-11-27 12:32 | disposition home or self-care (01) ==
LOC: 3BNU → SUATTDRO 16:00
PROVIDERS: ADMIT Family Medicine; ATTEND Nurse Practitioner